=== PATIENT | male | born 1980 | race Caucasian/White ===

== ENCOUNTER 2020-08-11 14:45 | Emergency (ER) | payer SELFPAY ==
[~2020-08-11] VITALS: Ht 167.6 cm; Wt 70.9 kg
[2020-08-11 15:03] VITALS: TEMP 98.5
[2020-08-11] MEDS ORDERED: NORCO 325 MG-51 TAB PO (16:02)
[2020-08-11 16:28] VITALS: BP 135/86; PULSE 90
== END 2020-08-11 16:28 | disposition home or self-care (01) ==
LOC: COL.ER 14:45
DX: S52.124A Nondisplaced fracture of head of right radius, initial encounter for closed fracture (principal); V19.9XXA Pedal cyclist (driver) (passenger) injured in unspecified traffic accident, initial encounter; Y92.410 Unspecified street and highway as the place of occurrence of the external cause